=== PATIENT | female | born 2000 | race Caucasian/White ===

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

== ENCOUNTER 2019-01-03 00:23 | Outpatient (CLI) | payer OTHER ==
[~2019-01-03] VITALS: Ht 175.3 cm; Wt 77.7 kg
[~2019-01-03 00:23] MED LIST changes: +ACET-683 PO
[2019-01-03 00:41] VITALS: BP 134/82
--- NOTE | 2019-01-03 01:35 | IPNPDOC ---
Obstetrical Progress Note Date of Service Jan 03, 2019 Subjective 18yo at 29+5wks, EDC 17MAR2019, presents to LND triage with c/o spotting. Pt reports that she noticed 'bright red' spotting x1 at 2300 last PM on the toilet paper when she wiped after voiding. Pt denies any further spotting. She reports noticing spotting one other time 'a few weeks ago'. She states she has been feeling intermittent cramps over the past week. Pt unable to state what precipitated cramps or spotting, but all resolve spontaneously. Pt denies an increase in activity prior to spotting; denies recent intercourse. Pt denies dysuria ,and abnormal vaginal discharge. Pt states that when she started to PO hydrate here in LND that cramping resolved. Pt reports excellent movement, denies LOF/CTX. Objective O: VSS FHR 140s Some contractions initially present, but resolved when pt PO hydrated VE and SSE not warranted at this time Vital Signs Date Time Temp Pulse Resp B/P (MAP) Pulse Ox O2 Delivery O2 Flow Rate FiO2 01/03/19 00:41 97.6 66 134/82 (99) Assessment and Plan Additional Comments A: 18yo at 29+5wks s/p spotting x1 that resolved spontaneously and minor cramping that resolved with hydration Reassuring status Dehydration P: Discussed importance of adequate hydration, encouraged pt to drink 3-4 liters/day or more of water Avoid sodas and other fluids with excess sugar Pelvic rest x1 week Call pager/nurse triage line if spotting returns or become heavy Discussed PTL/danger/return precautions f/u at previously scheduled [facility] Discharge home SARAH MARTINEZ CNM Jan 03, 2019 01:35
[2019-01-03] MEDS ORDERED: PRENATAL VITAMINS CHEWABLE TABLET PO SCH (09:00)
== END 2019-01-03 01:26 | disposition home or self-care (01) ==
LOC: M LDO 00:23
PROVIDERS: ATTEND Registered Nurse Maternal Newborn
DX: O26.853 Spotting complicating pregnancy, third trimester (principal); O99.283 Endocrine, nutritional and metabolic diseases complicating pregnancy, third trimester; E86.0 Dehydration; Z3A.29 29 weeks gestation of pregnancy
CPT/HCPCS: G0378; G0463

== ENCOUNTER 2019-06-26 11:30 | Emergency (ER) | payer OTHER ==
[~2019-06-26] VITALS: Ht 177.8 cm; Wt 67.5 kg
[2019-06-26] MEDS ORDERED: ADVI100T PO (11:37)
[2019-06-26] MEDS ORDERED: KETOROLAC 60 MG/2 ML VIAL (J1885) IM ONE (12:30)
[2019-06-26] MEDS ORDERED: ACETAMINOPHEN 325 MG TAB PO ONE (12:30)
[2019-06-26] MEDS ORDERED: CYCLOBENZAPRINE 10 MG TAB PO ONE (13:30)
[2019-06-26] MEDS ORDERED: CYCL10TA PO (13:33)
[2019-06-26] MEDS ORDERED: KETO10TAB PO (13:33)
[2019-06-26 13:40] VITALS: BP 110/70
== END 2019-06-26 13:44 | disposition home or self-care (01) ==
LOC: M ED 11:30
DX: M54.6 Pain in thoracic spine (principal)
CPT/HCPCS: 96372; 99283; J1885

== ENCOUNTER 2019-07-19 13:29 | Emergency (ER) | payer OTHER ==
[~2019-07-19] VITALS: Ht 177.8 cm; Wt 66.3 kg
[~2019-07-19 13:29] MED LIST changes: +ADVI100T PO; +CYCL10TA PO; +KETO10TAB PO
[2019-07-19] MEDS ORDERED: LIDOCAINE 2% MDV 20 ML VIAL SC ONE (14:15)
[2019-07-19] MEDS ORDERED: ACETAMINOPHEN 325 MG TAB PO ONE (14:15)
[2019-07-19] MEDS ORDERED: IBUPROFEN 600 MG TAB PO ONE (14:15)
[2019-07-19] MEDS ORDERED: BACT800T5 PO (15:13)
[2019-07-19 15:21] VITALS: BP 110/71
== END 2019-07-19 15:22 | disposition home or self-care (01) ==
LOC: M ED 13:29
DX: S61.012A Laceration without foreign body of left thumb without damage to nail, initial encounter (principal); W26.8XXA Contact with other sharp object(s), not elsewhere classified, initial encounter; Y92.89 Other specified places as the place of occurrence of the external cause; Y93.9 Activity, unspecified; Y99.1 Military activity

== ENCOUNTER 2019-10-20 13:24 | Emergency (ER) | payer OTHER ==
[~2019-10-20] VITALS: Ht 177.8 cm; Wt 63.6 kg
[~2019-10-20 13:24] MED LIST changes: +BACT800T5 PO; +CYCL-707 PO; -CYCL10TA PO
[2019-10-20] MEDS ORDERED: MULTTAB20 PO (13:45)
[2019-10-20 14:41] LABS: HEMATOCRIT 36.9 % (36.0-47.0); HEMOGLOBIN 12.6 g/dl (12.0-15.5); MEAN CORPUSCULAR HEMOGLOBIN 28.8 pg (27.0-33.0); MEAN CORPUSCULAR HGB CONC 34.1 g/dl (32.0-36.5); MEAN CORPUSCULAR VOLUME 84.4 fl (80.0-96.0); PLATELET COUNT, AUTOMATED 312 10^3/uL (150-450); RED BLOOD COUNT 4.37 10^6/uL (4.00-5.40); WHITE BLOOD COUNT 7.9 10^3/uL (4.0-10.0)
--- NOTE | 2019-10-20 14:51 | REP ---
LIMITED ABDOMINAL ULTRASOUND: Limited abdominal ultrasound performed to evaluate for possible free fluid in the abdomen and pelvis. No free fluid is seen. Electronically Signed by Justino Ordonez MD 10/21/2019 11:23 A
--- NOTE | 2019-10-20 14:51 | REP ---
OB ULTRASOUND: Real-time sonographic evaluation of the gravid uterus is performed utilizing transabdominal technique. There is single living intrauterine gestation with an estimated gestational age 6 weeks 2 days based on the crown/rump length of 5 mm, EDC 06/12/2020. heart rate is 126 beats per minute. There is no subchorionic hemorrhage. There is a cyst with septations of the left ovary 4.2 x 4.1 x 4.1 cm. This may represent a corpus luteum. There is no torsion. Electronically Signed by Justino Ordonez MD 10/21/2019 11:48 A
[2019-10-20 15:11] VITALS: BP 117/70
== END 2019-10-20 15:12 | disposition home or self-care (01) ==
LOC: M ED 13:24
DX: T76.11XA Adult physical abuse, suspected, initial encounter (principal); S30.1XXA Contusion of abdominal wall, initial encounter; Y92.098 Other place in other non-institutional residence as the place of occurrence of the external cause; Y07.01 Husband, perpetrator of maltreatment and neglect; Z3A.01 Less than 8 weeks gestation of pregnancy

== ENCOUNTER 2020-02-13 21:09 | Outpatient (CLI) | payer MEDICAID, OTHER ==
[~2020-02-13] VITALS: Ht 177.8 cm; Wt 68.4 kg
[~2020-02-13 21:09] MED LIST changes: +MULTTAB20 PO
[2020-02-13 22:01] VITALS: BP 118/58
--- NOTE | 2020-02-13 23:53 | REPVR ---
PROCEDURE INFORMATION: Exam: US Plus Detailed Evaluation, First Gestation, Transabdominal Exam date and time: 02/13/2020 11:08 PM Age: 19 years old Clinical indication: Lmp or gestational age (in weeks): 07/30/19; Antepartum complications; Bleeding; ; Additional info: Full ob US, placenta location, anatomy, dating TECHNIQUE: Imaging protocol: Real time transabdominal uterus, including and maternal evaluation plus detailed anatomic examination with image documentation. First gestation. COMPARISON: No relevant prior studies available. FINDINGS: Gestation: Single living intrauterine gestation. heart rate: 157 bpm. Presentation: Vertex. Placenta: Unremarkable. No subchorionic bleed. Placenta is posterior. Amniotic fluid: Amniotic fluid appears normal for gestational age. ANATOMY: Brain parenchyma: Normal. Midline falx: Normal. Cerebellum: Normal. Cerebral ventricles: Normal. Coronal face including nose, lips and lens: All suboptimal evaluation, obscured by position. Heart: Suboptimal evaluation, obscured by position. diaphragm: Normal. kidneys: Normal. stomach: Normal. urinary bladder: Normal. Spine: Normal. Umbilical cord: Normal three-vessel cord. Arms and hands: Normal. Legs and feet: Normal. BIOMETRY: Gestational age (AUA): 23 weeks 1 day Estimated due date (AUA): 06/10/2020 Estimated weight: 571 g Biparietal diameter: 5.8 cm Head circumference: 20.1 cm Abdominal circumference: 18.3 cm Femur length: 4.2 cm MATERNAL ANATOMY: Uterus: Unremarkable. Cervix: Unremarkable. Cervix measures 3 cm in length. Right adnexa: Ovary is obscured by overlying bowel gas. Left adnexa: Ovary is obscured by overlying bowel gas. IMPRESSION: Single living intrauterine gestation, estimated gestational age of 23 weeks and 1 day. anatomy and biometrics as detailed above. Electronically signed by: Sergio Britt On 02/13/2020 23:53:07 PM
== END 2020-02-13 23:40 | disposition home or self-care (01) ==
LOC: M LDO 21:09
PROVIDERS: ATTEND Obstetrics & Gynecology
DX: O26.852 Spotting complicating pregnancy, second trimester (principal); Z3A.23 23 weeks gestation of pregnancy

== ENCOUNTER → 2020-03-01 | Outpatient (CLI) | payer MEDICAID, OTHER, SELFPAY ==
--- NOTE | 2020-03-01 15:25 | REP ---
INDICATION: PREG, F/U ANATOMY COMPARISON: 02/13/2020 TECHNIQUE: Transabdominal obstetrical ultrasound with color Doppler evaluation. FINDINGS: Examination demonstrates a single live intrauterine in cephalic presentation. motion is identified by technologist. Placenta is noted posterior and grade 1 without evidence for placenta previa or abruption. Amniotic fluid volume is normal. Cervix appears closed. Gestational age by LMP 24 weeks 6 days with VIDA 06/15/2020. Gestational age by current measurements 25 weeks 6 days with VIDA 06/08/2020. FHR equals 144 beats per minute. Estimated weight 842 grams (60thpercentile). Anatomical assessment demonstrates normal structures including cranium, choroid plexus, cavum, cerebellum/posterior fossa, facial features, lungs, four-chamber heart/ventricular outflow tracts, diaphragm, stomach, cord insertion/three-vessel cord, kidneys/bladder, spine, and extremities. IMPRESSION: Single live intrauterine in cephalic presentation demonstrating appropriate interval growth. Anatomical assessment is complete and normal. <Electronically signed by Sumanth Corona > 03/01/20 [id number]
== END ==
LOC: M RAD 14:18
PROVIDERS: ATTEND Advanced Practice Midwife
DX: Z34.82 Encounter for supervision of other normal pregnancy, second trimester (principal); Z3A.25 25 weeks gestation of pregnancy